=== PATIENT | male | born 1965 | race Caucasian/White ===

== ENCOUNTER 2022-03-10 11:05 | Emergency (ER) | payer BC ==
[2022-03-10] MEDS ORDERED: Diphtheria,Pertussis(Acell),Tetanus Vaccine 0.5 ML Syringe IM ONE (11:56)
== END 2022-03-10 12:20 ==
LOC: JP.ED 11:05
DX: S01.01XA Laceration without foreign body of scalp, initial encounter (principal); I10 Essential (primary) hypertension; E03.9 Hypothyroidism, unspecified; Z23 Encounter for immunization; W26.8XXA Contact with other sharp object(s), not elsewhere classified, initial encounter; Y92.009 Unspecified place in unspecified non-institutional (private) residence as the place of occurrence of the external cause
CPT/HCPCS: 12002; 90471; 90715; 99281; 99283-25